=== PATIENT | female | born 1940 | race Caucasian/White ===

== ENCOUNTER 2017-05-17 06:29 | Day surgery (SDC) | payer OTHER, BC ==
[2017-05-16 16:13] VITALS: BMI 25.6
--- NOTE | 2017-05-17 05:55 | HP ---
History & Physical Update - History History: No Change - Physical Physical: No Change - Assessment Assessment: No Change - Plan Plan: No Change
[~2017-05-17 06:29] MED LIST: TOBRA 0.3%/DEXAMETH 0.1% OPHTHALMIC SUSP 2.5 ML BTL TP ONE
[2017-05-17] MEDS ORDERED: MOXIFLOXACIN HCL 0.5% OPHTHALMIC 3 ML BOTTLE ONE (06:33)
[2017-05-17] MEDS ORDERED: PHENYLEPHRINE 2.5% OPHTH SOLN 15 ML BOTTLE ONE (06:34)
[2017-05-17] MEDS ORDERED: CYCLOPENTOLATE HCL 1% OPHTH SOLN 2 ML BOTTLE ONE (06:34)
[2017-05-17] MEDS: PHENYLEPHRINE 2.5% OPHTH SOLN 15 ML BOTTLE OP SCH ×3 (06:50→07:23)
[2017-05-17] MEDS: TROPICAMIDE 1% OPHTH SOLN 15 ML BOTTLE OP SCH ×3 (06:50→07:23)
[2017-05-17] MEDS: MOXIFLOXACIN HCL 0.5% OPHTHALMIC 3 ML BOTTLE OP SCH ×3 (06:50→07:22)
[2017-05-17] MEDS: CYCLOPENTOLATE HCL 1% OPHTH SOLN 2 ML BOTTLE OP SCH ×3 (06:50→07:22)
[2017-05-17 07:08] VITALS: TEMP 98.1
[2017-05-17] MEDS ORDERED: TOBRA 0.3%/DEXAMETH 0.1% OPHTHALMIC SUSP 2.5 ML BTL ONE (07:22)
[2017-05-17] MEDS ORDERED: EPINEPHrine/PF 1 MG/1 ML (1:1,000) AMPULE ONE (07:22)
[2017-05-17] MEDS ORDERED: POVIDONE-IODINE 5% OPHTHALMIC PREP 30 ML SOLUTION ONE (07:23)
[2017-05-17] MEDS ORDERED: LIDOCAINE HCL/PF 1% SDV 5ML VIAL ONE (07:23)
[2017-05-17] MEDS ORDERED: BSS (NA/CA/MG/K) BALANCED SALT SOLUTION OPHTH SOLN 15 ML BOTTLE ONE (07:23)
[2017-05-17] MEDS ORDERED: TETRACAINE 0.5% OPHTH SOLN 2 ML BOTTLE ONE (07:23)
[2017-05-17] MEDS ORDERED: MIDAZOLAM HCL 2 MG/2 ML SINGLE DOSE VIAL ONE (07:53)
[2017-05-17] MEDS ORDERED: TETRACAINE 0.5% OPHTH SOLN 2 ML BOTTLE TP ONE (08:00)
[2017-05-17] MEDS ORDERED: LIDOCAINE HCL 1% PRESERVATIVE FREE - 30ML VIAL IO ONE (08:11)
[2017-05-17] MEDS ORDERED: CHONDROITIN SU A/HYALUR SOD 1 KIT IO ONE (08:12)
[2017-05-17] MEDS ORDERED: TOBRA 0.3%/DEXAMETH 0.1% OPHTHALMIC SUSP 2.5 ML BTL TP ONE (08:45)
[2017-05-17 10:22] VITALS: BP 143/83; PULSE 60
--- NOTE | 2017-05-18 09:21 | OP ---
DATE OF OPERATION: 05/17/2017 SURGEON: Eulogio Ken MD PREOPERATIVE DIAGNOSIS: Cataract, right eye. OPERATION: Phacoemulsification and intraocular lens implantation, right eye. POSTOPERATIVE DIAGNOSIS: Cataract, right eye. ANESTHESIA: Topical. COMPLICATIONS: None. BLOOD LOSS: None. SPECIMEN: None. BRIEF HISTORY: The patient is a 76-year-old woman with a past medical history of arthritis. She presented with decreased vision in the right eye down to 20/40 due to a 1+ to 2+ nuclear sclerotic lens with an anterior cortical streak across the visual axis. After the risks, benefits and alternatives to cataract surgery were discussed with the patient, she consented to surgery for the right eye. The patient was brought to the operating room and prepped and draped in the usual sterile fashion and an eyelid speculum was inserted in the right eye. A paracentesis was made and the anterior chamber was inflated with nonpreserved lidocaine. This was followed by injection of Viscoat. A groove was made in the temporal clear cornea which was tunneled forward with a crescent blade. The anterior chamber was entered with a 2.75 keratome. The cystitome was used to make an incision in the center of the capsule and a continuous curvilinear capsulorhexis was created. The lens was hydrodissected until it was found to rotate freely within the capsular bag. Phacoemulsification was then used to remove the lens in its entirety. Irrigation and aspiration was used to remove residual cortical material. The anterior chamber and capsular bag were reinflated with Provisc and a 22.5 diopter SN60WF AcrySof intraocular lens was injected into the capsular bag using the [place] injector. The lens was dialed into place using a [place] hook. Irrigation and aspiration was used to remove residual viscoelastic. The wound was stromally hydrated, however, was not found to be watertight. Two 10-0 nylon sutures were placed in the wound and the wound was then found to be watertight and the eye was an appropriate pressure. The eyelid speculum was removed from the eye and TobraDex drops and a clear shield were placed over the right eye. The patient was transferred to the recovery room in stable condition and will follow up tomorrow. Yojana MALDONADO/[id number]
== END 2017-05-17 09:50 | disposition home or self-care (01) ==
LOC: JASU-SURG 06:29
PROVIDERS: ATTEND Ophthalmology
PROC: 08RJ3JZ Replacement of Right Lens with Synthetic Substitute, Percutaneous Approach (ICD-10-PCS; principal; 2017-05-17 08:00)
DX: H25.11 Age-related nuclear cataract, right eye (principal)